=== PATIENT | female | born 1965 | race Two or more races ===

== ENCOUNTER 2025-06-02 12:48 | Emergency (ER) | payer BC, OTHER ==
[~2025-06-02] VITALS: Ht 162.6 cm; Wt 91.0 kg
--- NOTE | 2025-06-02 13:05 | ED.PDOC ---
Musculoskeletal HPI Comments REBECCA: R knee pain 59y F who presents to the ED via EMS for chief complaint of R knee pain - Pt was at home and had mechanical slip and fall on R knee onto thin carpet and fell to the floor - pt states she was unable to get up but denies any associated head injury or loss of consciousness and called EMS - EMS arrived on scene and noted pt was helped and escorted to chair and then EMS gurney with noted pain when being moved - EMS noted pt was brought to the ED and was given 50 mcg of fentanyl prior to ED arrival with noted minimal change in pain - pt in the ED, noted R knee pain with any movement - pt otherwise states she ambulates at home with walker - pt in the ED, denies use of blood thinner at this time Past Medical history: HTN, Hyperlipidemia, COPD, neuropathy Past Surgical history: Medications: Social history: denies EOTH, denies tobacco use, denies drug use Allergies: nkda HPI: Poor Historian. Patient is not on blood thinners. REVIEW OF SYSTEMS: CONSTITUTIONAL: Denies acute: fever, diaphoresis, chills, generalized weakness. HEAD: Denies acute: headache, photophobia Eyes: Denies acute: Double vision, vision loss, eye pain, eye discharge. EARS: Denies acute: tinnitus, hearing loss, ear discharge, ear pain, THROAT: Denies acute: sore throat, swelling, difficulty swallowing , pain with swallowing, change in voice. NECK: Denies acute: neck pain, neck swelling, stiff neck. HEART: Denies acute : chest pain, palpitations, LUNGS: Denies acute: SOB, wheezing, cough, hemoptysis ABDOMEN: Denies acute: abdominal pain, Nausea, Vomiting, diarrhea, melena , hematemesis, hematochezia SKIN: Denies acute: rash, redness, lesions, itchiness. EXTREMITIES: Denies acute: calf pain, numbness, tingling, weakness, Denies acute: Low back pain. Neuro: Denies acute: focal neurological deficit, motor or sensory focal neurological deficit, tremors, seizure like activity, confusion, dizziness, change in mental status, loss of bowel or bladder function, cauda equina like symptoms. : Denies acute: dysuria, hematuria, flank pain, increase in urinary frequency. PSYCH: Denies acute: hallucination, suicidal ideation, homicidal ideation. FEMALE: Denies acute: abnormal vaginal bleeding, foul odor, unusual discharge. PHYSICAL EXAM: General: ------moderate--acute distress, awake and alert. Head: normocephalic, atraumatic. Neck: supple, trachea is midline, no swelling. Throat: Normal phonation. Eyes:, no erythema, no purulent discharge, no proptosis, no icterus. Heart: regular rate, regular rhythm, no significant murmur appreciated. Lungs: no apparent respiratory distress, Able to speak in full sentences. No wheezing, no rhonchi, no crackles. No stridors Clear to auscultation bilaterally. Abdomen: non tender to palpation, non distended, soft, no guarding, no rebound, + bowel sounds. Please Neuro: Awake, Alert, oriented to name, self, situation, follows commands GCS=15. Speech is normal. Skin: no petechia, no purpura, no cyanosis, non-pale, not jaundice. Lower extremities: --no - Pitting edema no deformity, , no calf TTP. Makes eye contact. moves all four extremities. Face: no apparent facial droop. Evaluation of the area of complaint: [id number] right knee noted bruising and tenderness to palpation. Patient is neurovascularly intact in the affected extremity. Pedal pulses palpable. Sensory and motor are present. Decreased range of motion of right knee secondary to pain. Pedal pulses are palpable. ED COURSE: DISCLAIMER: This medical document was created using an electronic medical record system with voice recognition software and computerized dictation system. Although this document has been carefully reviewed, there might still be some phonetic and typographical errors. Occasional wrong-word or "sound-alike" substitutions may have occurred due to the inherent limitations of voice recognition software. These areas are purely typographical due to imperfections of the software programs and do not reflect any compromise in the patient's medical care. Please read the chart carefully and recognize, using context, where these substitutions have occurred. Time Seen by MD: 12:56 Reviewed Notes: Laborer Hoisting Notes, Medications, Allergies Allergies: Coded Allergies: Sulfa Antibiotics (Verified Allergy, Unknown, 06/02/25) Home Meds Reported Medications Gabapentin (Neurontin) 400 Mg Cap, 2 CAP PO TID, #90 CAP 1 Refill 06/03/25 Information Source: Patient Mode of Arrival: EMS Brought in by: EMS Location: Right Extremity Location: Knee Was a procedure done? Was a procedure done?: No Differential Diagnosis EXT Differential Diagnosis: Cellulitis, CHF, Deep Vein Thrombosis, Compartment Syndrome, Fracture, Sprain, Dislocation, Laceration, Gout, DJD, Contusion, Strain, Septic, Neurovascular injury, Arthritis, Bursitis X-Ray, Labs, Meds, VS Vital Signs Date Time Temp Pulse Resp B/P (MAP) Pulse Ox O2 Delivery O2 Flow Rate FiO2 06/02/25 16:15 67 16 129/86 (100) 92 06/02/25 14:00 55 16 129/69 (89) 96 06/02/25 14:00 55 16 96 Room Air* 0 21 06/02/25 13:28 98.2 68 18 140/79 96 98.2 [place] [address] Ph: [phone] DIAGNOSTIC IMAGING Diagnostic Imaging Report : [id number] Signed PATIENT: NATALIE FERNANDEZ ACCT: [id number] UNIT: [id number] : 1965 LOC: ER ROOM / BED: / AGE / SEX: 59 / F ADM STATUS: REG ER SERVICE 1400 ORDERING PHYSICIAN: MARTA PRATER DO PROCEDURE(s): RTBFB - R TIB FIB XRAY REASON: fall pain ORDER NUMBER(s): [id number], ACCESSION NUMBER(s): [id number] CLINICAL INDICATION: fall pain TECHNIQUE: 3 radiographic views of the right tibia/fibula were obtained. Comparison: XY R KNEE 3V XRAY on DOS: 06/02/25 FINDINGS/IMPRESSION: There is no evidence of acute fracture or dislocation. The visualized joint space is well maintained. The alignment is anatomical. There is no radiopaque foreign body. ATED BY: TEJAS MILLARD MD DICTATED DATE/TIME: 06/02/25 145 SIGNED BY: TEJAS MILLARD MD SIGNED DATE/TIME: 06/02/25 145 CC: [address], [place] - [address] Ph: [phone] DIAGNOSTIC IMAGING Diagnostic Imaging Report : [id number] Signed PATIENT: NATALIE FERNANDEZ ACCT: [id number] UNIT: [id number] : 1965 LOC: ER ROOM / BED: / AGE / SEX: 59 / F ADM STATUS: REG ER SERVICE 1302 ORDERING PHYSICIAN: MARTA PRATER DO PROCEDURE(s): RKN3 - R KNEE 3V XRAY REASON: injury, fall pain ORDER NUMBER(s): [id number], ACCESSION NUMBER(s): [id number] Indication: injury, fall pain Technique: XY R KNEE 3V XRAYXY Comparison: None FINDINGS/IMPRESSION: No radiographic evidence for acute fracture or dislocation. Moderate to advanced tricompartmental degenerative joint disease of the right knee. Small suprapatellar effusion. Prepatellar edema. ATED BY: NOY CHANCE MD DICTATED DATE/TIME: 06/02/25 1354 SIGNED BY: NOY CHANCE MD SIGNED DATE/TIME: 06/02/25 1354 CC: Time of 1ST Reevaluation: 13:30 Reevaluation 1ST: Unchanged Time of 2ND Reevaluation: 16:07 (Patient is able to ambulate to the bathroom. Patient uses a walker and a cane at home as needed. I offered the patient to be admitted to the hospital for pain control and possible ortho evaluation. Patient requests to be discharged home and she will call the orthopedic doctor herself for outpatient follow up.) Reevaluation 2ND: Improved Patient Education/Counseling: Diagnosis, Treatment Family Education/Counseling: No Family Present Comments MDM: patient presented with the above HPI.--lower extremity pain----workup was initiated. patient was found with the above mentioned diagnosis. the following medications were ordered: please refer to order lists of meds and tests obtained by myself Dr. Prater. Patient ED course and VS have been stabilized. Patient has been reassessed in the ED and remained in a stable condition. Pertinent incidental findings were discussed with the patient and/or family. Patient/family voices understanding and is agreeable with plan. Patient has been observed in the ED adequate length of time to insure improvement/stability. Escalation of care considered: Consideration of escalation to observation or admission Patient was offered admission to the hospital but she wants to go home. Patient was ambulating in the ED. Patient will follow up closely with the orthopedic doctor. Patient was DISCHARGED home in a stable condition. All the reports of any imaging studies that were ordered by myself were reviewed by myself. Departure 1 Departure Time of Disposition: 16:07 Impression: Primary Impression: Contusion of right lower extremity Additional Impression: Contusion of right knee Disposition: HOME / SELF CARE / HOMELESS Condition: Stable Additional Instructions: Additional instructions: Please read all instructions provided in this packet carefully. You MUST follow-up with your primary care/family doctor in 1 to 2 days. If you are unable to see your primary care/family doctor, please return to our emergency room for re-assessment and re-evaluation in 1 to 2 days. Return to the emergency room here in our facility or to the nearest ER [facility] if your symptoms change or worsen. CONSULTATIONS: you MUST Follow-up for consultation as soon as possible with: -orthopedic doctor in 1-2 days. Please call for appointment You MUST call the consultants office yourself to make an appointment. You may need to arrange that through your insurance and/or your primary/family doctor. If you are unable to see the individual pension consultant in 1 to 2 days, you must return to our emergency room (or any other ER of your choice) for re-assessment and re- evaluation. Adequate fluid hydration. Although you have been discharged from the Emergency Department, this does not mean that you have a "clean bill of health". No definitive diagnosis for your symptoms has been made today. It is possible that you are in the process of developing a serious illness. This is why you must return to the ED without fail if any new or worsening symptoms develop. Fall precautions. Ambulates with the assistance at all times. Leg elevation and apply ice to the affected area with the pain is. Below is a copy of your radiological report for follow up: [address] [address] Ph: [phone] DIAGNOSTIC IMAGING Diagnostic Imaging Report : [id number] Signed PATIENT: NATALIE FERNANDEZ ACCT: [id number] UNIT: [id number] : 1965 LOC: ER ROOM / BED: / AGE / SEX: 59 / F ADM STATUS: REG ER SERVICE 1400 ORDERING PHYSICIAN: MARTA PRATER DO PROCEDURE(s): RTBFB - R TIB FIB XRAY REASON: fall pain ORDER NUMBER(s): [id number], ACCESSION NUMBER(s): [id number] CLINICAL INDICATION: fall pain TECHNIQUE: 3 radiographic views of the right tibia/fibula were obtained. Comparison: XY R KNEE 3V XRAY on DOS: 06/02/25 FINDINGS/IMPRESSION: There is no evidence of acute fracture or dislocation. The visualized joint space is well maintained. The alignment is anatomical. There is no radiopaque foreign body. ATED BY: TEJAS MILLARD MD DICTATED DATE/TIME: 06/02/25 1456 SIGNED BY: TEJAS MILLARD MD SIGNED DATE/TIME: 06/02/251455 CC: [place] [address] Ph: [phone] DIAGNOSTIC IMAGING Diagnostic Imaging Report : [id number] Signed PATIENT: NATALIE FERNANDEZ ACCT: [id number] UNIT: [id number] : 1965 LOC: ER ROOM / BED: / AGE / SEX: 59 / F ADM STATUS: REG ER SERVICE 1302 ORDERING PHYSICIAN: MARTA PRATER DO PROCEDURE(s): RKN3 - R KNEE 3V XRAY REASON: injury, fall pain ORDER NUMBER(s): [id number], ACCESSION NUMBER(s): [id number] Indication: injury, fall pain Technique: XY R KNEE 3V XRAYXY Comparison: None FINDINGS/IMPRESSION: No radiographic evidence for acute fracture or dislocation. Moderate to advanced tricompartmental degenerative joint disease of the right knee. Small suprapatellar effusion. Prepatellar edema. ATED BY: NOY CHANCE MD DICTATED DATE/TIME: 06/02/25 1354 SIGNED BY: NOY CHANCE MD SIGNED DATE/TIME: 06/02/25 6826 CC: Discharged With: Self, Spouse Critical Care Note Critical Care Time?: No Stability Stability form required: No I personally scribed for MARTA PRATER DO ([facility]) on 06/02/25 at 13:05. Elec tronically submitted by Noel Nolasco ([facility]). I personally scribed for MARTA PRATER DO ([facility]) on 06/02/25 at 13:52. Electronically submitted by Noel Nolasco ([email or web address]). I personally scribed for MARTA PRATER DO ([email or web address]) on 06/02/25 at 15:06. Electronically submitted by Noel Nolasco (DANIEL). I personally scribed for MARTA PRATER DO ([email or web address]) on 06/02/25 at 16:09. Electronically submitted by Noel Nolasco ([email or web address]). MARTA PRATER DO Jun 02, 2025 13:05
[2025-06-02 13:28] VITALS: TEMP 98.2
--- NOTE | 2025-06-02 13:52 | DVH ---
Indication: injury, fall pain Technique: XY R KNEE 3V XRAYXY Comparison: None FINDINGS/IMPRESSION: No radiographic evidence for acute fracture or dislocation. Moderate to advanced tricompartmental de generative joint disease of the right knee. Small suprapatellar effusion. Prepatellar edema.
[2025-06-02 14:00] VITALS: PULSE 55; RESP 16; O2SAT 96
[2025-06-02] MEDS: HYDROcodone-ACET 5/325MG TAB PO ONE (14:36)
--- NOTE | 2025-06-02 14:59 | DVH ---
CLINICAL INDICATION: fall pain TECHNIQUE: 3 radiographic views of the right tibia/fibula were obtained. Comparison: XY R KNEE 3V XRAY on DOS: 06/02/25 FINDINGS/IMPRESSION: There is no evidence of acute fracture or dislocation. The visualized joint space is well maintained. The alignment is anatomical. There is no radiopaque foreign body.
[2025-06-02 16:15] VITALS: BP 129/86; PULSE 67; RESP 16; O2SAT 92
[2025-06-03] MEDS ORDERED: GABA400C PO (17:16)
== END 2025-06-02 16:43 | disposition home or self-care (01) ==
LOC: EDBD 12:48 → ER 12:48
DX: S80.11XA Contusion of right lower leg, initial encounter (principal); S80.01XA Contusion of right knee, initial encounter; I10 Essential (primary) hypertension; E78.5 Hyperlipidemia, unspecified; J44.9 Chronic obstructive pulmonary disease, unspecified; M17.11 Unilateral primary osteoarthritis, right knee; Z79.899 Other long term (current) drug therapy; Z88.2 Allergy status to sulfonamides; W01.0XXA Fall on same level from slipping, tripping and stumbling without subsequent striking against object, initial encounter; Y93.89 Activity, other specified; Y92.098 Other place in other non-institutional residence as the place of occurrence of the external cause; Y99.8 Other external cause status
CPT/HCPCS: 73562; 73590

== ENCOUNTER 2025-06-03 05:12 | Inpatient (IN) | payer BC ==
[~2025-06-03] VITALS: Ht 152.4 cm; Wt 116.8 kg
[2025-06-03] MEDS: ACETAMINOPHEN 325 MG TAB PO ONE (06:20)
--- NOTE | 2025-06-03 07:27 | ED.PDOC ---
Musculoskeletal HPI Comments A 59 YEAR OLD FEMALE PRESENTS TO THE ED WITH COMPLAINT OF RIGHT KNEE PAIN STATUS POST FALL. PATIENT STATES THAT SHE ACCIDENTALLY SLIPPED AND FELL YESTERDAY AND INJURED HER RIGHT KNEE. PATIENT REPORTS SHE CAME TO THIS ED AFTER THIS INJURY WHERE AN X-RAY OF HER RIGHT KNEE AND RIGHT TIB-FIB WAS DONE ALL OF WHICH WAS NORMAL, BUT REVEALED DEGENERATIVE JOINT DISEASE OF HER RIGHT KNEE. PATIENT REPORTS SHE CONTINUES TO HAVE SEVERE RIGHT KNEE PAIN DESPITE TAKING PAIN MEDICATIONS. PATIENT NOTES HER PAIN IS WORSE AT NIGHT AND WOKE HER UP. PATIENT IS UNABLE TO BEAR WEIGHT DUE TO HER PAIN. THE PAIN LEVEL IS 10/10 AT THIS TIME. PATIENT DENIES FEVER, CHILLS, SHORTNESS OF BREATH, CHEST PAIN, ABDOMINAL PAIN, NAUSEA, VOMITING, HEADACHE, OR OTHER COMPLAINTS. NO OTHER SYMPTOMS OR MODIFYING FACTORS AT THIS TIME. PATIENT IS ALERT, ORIENTED X 4 AND SITTING ON THE WHEEL CHAIR. Chief Complaint: Fall Injury Time Seen by MD: 06:26 Reviewed Notes: Nurses Notes, Medications, Allergies Allergies: Coded Allergies: Sulfa Antibiotics (Verified Allergy, Unknown, 06/02/25) Information Source: Patient Mode of Arrival: Ambulatory Location: Right Extremity Location: Knee Timing: Days Prehospital treatment: None Severity: Moderate Able to Move Extremity: Yes Bear Weight: Limited Pain: Moderate Mechanism: Blunt Trauma Circumstances: Fall Onset of Symptoms: After Trauma Symptoms: Swelling, Pain DVT Risk Factors: NONE Last Tetanus: UTD, Unknown Associated signs and symptoms: Knee pain Past Medical History PAST MEDICAL HISTORY: COPD, HTN Past Medical History (Other): CHRONIC LOW BACK PAIN Surgical History: Denies all surgeries BOOK AUTHOR History: No Pertinent BOOK AUTHOR History Family History Family History: Reviewed,noncontributory to illness Social History Smoker: Non-Smoker Alcohol: Denies ETOH Use Drugs: Denies Drug Use Lives In: Home Constitutional: reports: others (ANXIOUS ); denies: chills, diaphoresis, fatigue, fever, malaise, sweats, weakness EENTM: denies: blurred vision, double vision, ear bleeding, ear discharge, ear drainage, ear pain, ear ringing, eye pain, eye redness, hearing loss, mouth pain, mouth swelling, nasal discharge, nose bleeding, nose congestion, nose pain, photophobia, tearing, throat pain, throat swelling, voice changes, others Respiratory: denies: cough, hemoptysis, orthopnea, SOB at rest, shortness of breath, SOB with excertion, stridor, wheezing, others Cardiovascular: denies: chest pain, dizzy spells, diaphoresis, Dyspnea on exertion, edema, irregular heart beat, left arm pain, lightheadedness, palpitations, PND, syncope, others Gastrointestinal: denies: abdomen distended, abdominal pain, blood streaked bowels, constipated, diarrhea, dysphagia, difficulty swallowing, hematemesis, melena, nausea, poor appetite, poor fluid intake, rectal bleeding, rectal pain, vomiting, others Genitourinary: denies: abnormal vagina bleeding, burning, dyspareunia, dysuria, flank pain, frequency, hematuria, incontinence, pain, , vagina discharge, urgency, others Neurological: denies: dizziness, fainting, headache, left sided numbness, left sided weakness, numbness, paresthesia, pre-existing deficit, right sided numbness, right sided weakness, seizure, speech problems, tingling, tremors, weakness, others Musculoskeletal: reports: joint pain, joint swelling, others (RIGHT KNEE PAIN); denies: back pain, gout, muscle pain, muscle stiffness, neck pain Integumetry: denies: bruises, change in color, change in hair/nails, dryness, laceration, lesions, lumps, rash, wounds, others Allergic/Immunocompromised: denies: Difficulty Healing, Frequent Infections, Hives, Itching, others Hematologic/Lymphatic: denies: anemia, blood clots, easy bleeding, easy bruising, swollen glands, others Endocrine: denies: excessive hunger, excessive sweating, excessive thirst, excessive urination, flushing, intolerance to cold, intolerance to heat, unexplained weight gain, unexplained weight loss, others Psychiatric: denies: anxiety, bipolar disorder, depression, hopeless, panic disorder, schizophrenia, sleepless, suicidal, others All Other Systems: Reviewed and Negative Physical Exam General Appearance: Mild Distress, Obese HEENT: Normal ENT Inspection, PERRL/EOMI, Pharynx Normal, TMs Normal Neck: Full Range of Motion, Non-Tender, Normal, Normal Inspection Respiratory: Chest Non-Tender, Lungs Clear, No Accessory Muscle Use, No Respiratory Distress, Normal Breath Sounds Cardiovascular: No Edema, No JVD, No Murmur, No Gallop, Normal Peripheral Pulses, Regular Rate/Rhythm Breast Exam: Deferred Gastrointestinal: No Organomegaly, Non Tender, No Pulsatile Mass, Normal Bowel Sounds, Soft Genitalia: Deferred Pelvic: Deferred Rectal: Deferred Extremities: Decreased range of motion, No calf tenderness, Normal capillary refill, No pedal edema, Swelling (TENDERNESS AND SWELLING WITH CONTUSION ON RIGHT KNEE, NO BONY TENDERNESS AND DEFORMITY. ), Tender (AND SWELLING ON RIGHT KNEE WITH MILD JOINT EFFUSION. ) Musculoskeletal : Apperance: Normal Neurologic: Alert, human resources support specialist II-XII nml as Tested, No Motor Deficits, Normal Affect, Normal Mood, No Sensory Deficits Cerebellar Function: Normal Reflexes: Normal Skin: Dry, Normal Color, Warm Peripheral Pulses: 2+ carotid (R), 2+ carotid (L), 2+ dorsalis pedis (R), 2+ dorsalis pedis (L) Lymphatic: No Adenopathy Was a procedure done? Was a procedure done?: No Differential Diagnosis EXT Differential Diagnosis: Fracture, Sprain, Dislocation, DJD, Contusion, Strain, Arthritis, Bursitis X-Ray, Labs, Meds, VS Vital Signs Date Time Temp Pulse Resp B/P (MAP) Pulse Ox O2 Delivery O2 Flow Rate FiO2 06/03/25 12:00 63 15 96 Room Air* 0 21 06/03/25 11:30 97.7 73 16 115/60 (78) 97 97.7 06/03/25 10:27 69 16 98/51 06/03/25 09:51 98.4 74 16 98/51 (67) 90 98.4 06/03/25 09:51 74 16 90 Room Air* 0 21 06/03/25 09:23 62 18 131/56 06/03/25 08:50 62 18 100 Room Air 06/03/25 08:50 62 18 131/56 (81) 100 06/03/25 05:13 98.3 66 18 148/63 98 98.3 Lab Test 06/03/25 09:22 06/03/25 07:51 06/03/25 07:15 Range/Units White Blood Count 7.2 4.4-10.8 10^3/uL Red Blood Count 4.19 4.0-5.20 10^6/uL Hemoglobin 12.4 12.2-16.2 g/dL Hematocrit 37.3 36.0-46.0 % Mean Corpuscular Volume 89.1 80.0-100.0 fL Mean Corpuscular Hemoglobin 29.7 28.0-32.0 pg Mean Corpuscular Hemoglobin Concent 33.3 32.0-36.0 g/dL Red Cell Distribution Width 13.9 11.8-14.3 % Platelet Count 242 140-450 10^3/uL Mean Platelet Volume 9.1 6.9-10.8 fL Neutrophils (%) (Auto) 68.3 37.0-80.0 % Lymphocytes (%) (Auto) 22.5 10.0-50.0 % Monocytes (%) (Auto) 6.5 0.0-12.0 % Eosinophils (%) (Auto) 2.2 0.0-7.0 % Basophils (%) (Auto) 0.5 0.0-2.0 % Neutrophils # (Auto) 4.9 1.6-8.6 10 ^3/uL Lymphocytes # (Auto) 1.6 0.4-5.4 10 ^3/uL Monocytes # (Auto) 0.5 0-1.3 10 ^3/uL Eosinophils # (Auto) 0.2 0-0.8 10 ^3/uL Basophils # (Auto) 0 0-0.2 10 ^3/uL Nucleated Red Blood Cells 0.1 % Lactate Dehydrogenase 298 H 120-246 U/L C-Reactive Protein High Sensitivity 0.93 <1.0 mg/dL Sodium Level 143 136-145 mmol/L Potassium Level 4.1 3.5-5.1 mmol/L Chloride Level 107 98-107 mmol/L Carbon Dioxide Level 25 20-31 mmol/L Anion Gap 11 5-15 Blood Urea Nitrogen 9 9-23 mg/dL Creatinine 0.66 0.550-1.02 mg/dL Glomerular Filtration Rate Calc 100 >90 mL/min BUN/Creatinine Ratio 13.6 10.0-20.0 Serum Glucose 131 H 74-106 mg/dL Calcium Level 9.4 8.7-10.4 mg/dL Urine Color Light-yellow Yellow Urine Clarity Clear Clear Urine pH 6.5 5.0-9.0 Urine Specific Reeder 1.008 1.001-1.035 Urine Protein Negative Negative Urine Ketones Negative Negative Urine Blood Negative Negative /uL Urine Nitrite Negative Negative Urine Bilirubin Negative Negative Urine Urobilinogen Normal Negative mg/dL Urine Leukocyte Esterase Negative Negative /uL Urine RBC None seen 0 - 4 /hpf Urine Microscopic WBC 0-5 /HPF Urine Squamous Epithelial Cells Few <5 /hpf Urine Bacteria Few H None Seen /hpf Urine Glucose Normal Normal mg/dL Current Medications Medications (Trade) Dose Ordered Sig/Gt Route Start Time Stop Time Status Last Admin Acetaminophen (Tylenol Tablet) 650 mg ONCE ONCE PO 06/03/25 06:15 06/03/25 06:16 DC 06/03/25 06:20 Acetaminophen/ Hydrocodone Bitart ([place] 10/325MG Tab) 1 tab ONCE ONCE PO 06/03/25 07:15 06/03/25 07:16 DC 06/03/25 07:38 Hydromorphone HCl (Dilaudid Injection) 1 mg ONCE ONCE IV 06/03/25 08:45 06/03/25 08:46 DC 06/03/25 09:23 Ondansetron HCl (Zofran) 4 mg ONCE ONCE IV 06/03/25 08:45 06/03/25 08:46 DC 06/03/25 09:23 Sodium Chloride 1,000 ml @ 150 mls/hr Q6H40M ONCE IV 06/03/25 08:45 06/03/25 15:24 DC 06/03/25 10:21 CLINICAL INDICATION: FALL TECHNIQUE: Noncontrast CT of the right knee was performed. Sagittal and coronal reformatted images are provided. COMPARISON: XY R KNEE 3V XRAY on DOS: 06/02/25 CT Dose: CTDI volume is 13.96 mGy. Dose-length product is 486.19 mGy*cm FINDINGS: No fracture or dislocation. There is a 1.9 cm sclerotic lesion in the central proximal tibia. This could represent either chondroid lesion or an intramedullary infarct. There is sclerotic foci along the posterior aspect of the lateral distal femoral condyle suggesting avascular necrosis. No articular collapse. No acute fracture or dislocation. Tricompartment osteophytes are present and there is moderate medial compartment joint space narrowing. There is high density fluid in the prepatellar soft tissues measuring 9.2 cm consistent with hematoma. Mild fatty infiltration of the muscles in the knee. IMPRESSION: 1. No acute fracture or dislocation. 2. Osteoarthritis. 3. Hematoma in the anterior prepatellar soft tissues. 4. Avascular necrosis in the posterolateral femoral condyle. 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. All CT scans at this medical facility are performed using dose modulation techniques as appropriate to a performed exam including the following: Automated exposure control was utilized; adjustment of the MA and/or KV according to patient size; and use of iterative reconstruction technique. ATED BY: DOUGLAS AGUAYO MD DICTATED DATE/TIME: 06/03/25802 SIGNED BY: DOUGLAS AGUAYO MD SIGNED DATE/TIME: 06/03/25802 CC: X-Ray, Labs, Meds, VS Comment EXTERNAL MEDICAL RECORDS REVIEWED: [NONE] INDEPENDENT HISTORIANS: [NONE] SOCIAL DETERMINANTS OF HEALTH: [NONE] LABS ORDERED: CBC, BMP, UA REVIEWED AND INTERPRETED RESULTS: IMAGING ORDERED: CT RIGHT KNEE TREATMENTS ORDERED: NORCO 10/325 MG P.O. DILAUDID 1 MG IV, ZOFRAN 4 MG IV, 0.9 NORMAL SALINE 150ML/HOUR PROCEDURES PERFORMED: NONE CRITICAL CARE TIME: NONE I HAVE DISCUSSED THE PATIENT WITH THE ATTENDING PHYSICIAN DR. ARMSTRONG AND HE AGREES WITH THE PATIENT'S PLAN OF CARE. 0835: CONSULTED THE ON-CALL BOTTLE LABELER, DR. LOPEZ REGARDING THIS PATIENT'S CASE AND HE HAS A AGREED TO CONSULT ON THE PATIENT'S CASE. UPON MY PHYSICAL EXAMINATION, THE PATIENT HAD TENDERNESS UPON PALPATION, BRUISING, AND SWELLING NOTED TO HER RIGHT KNEE, AND THE PATIENT WAS UNABLE TO BEAR WEIGHT DUE TO HER PAIN. A CT SCAN OF THE PATIENT'S RIGHT KNEE WAS DONE WHICH REVEALED OSTEOARTHRITIS AND AVASCULAR NECROSIS OF THE POSTEROLATERAL FEMORAL CONDYLE. DUE TO THE PATIENT'S INTRACTABLE RIGHT KNEE PAIN AND INABILITY TO BEAR WEIGHT DUE TO HER PAIN DESPITE TREATMENT, I HAVE DETERMINED THE PATIENT NEEDS TO BE ADMITTED FOR FURTHER TREATMENT AND EVALUATION. THE ON-CALL HOSPITALIST WILL BE CONTACTED FOR ADMISSION OF THIS PATIENT. Images Reviewed?: Images reviewed and evaluated by me Time of 1ST Reevaluation: 10:00 Reevaluation 1ST: Improved Consultation: Other (0835: CONSULTED THE ON-CALL BOTTLE LABELER, DR. LOPEZ REGARDING THIS PATIENT'S CASE AND HE HAS A AGREED TO CONSULT ON THE PATIENT'S CASE.) Patient Education/Counseling: Diagnosis, Treatment Family Education/Counseling: Diagnosis, Treatment Departure 1 Departure Time of Disposition: 10:00 Impression: Primary Impression: Intractable pain Additional Impressions: Avascular necrosis of femoral condyle Osteoarthritis Qualified Codes: M17.11 - Unilateral primary osteoarthritis, right knee Disposition: ADMITTED INPATIENT Condition: Serious Critical Care Note Critical Care Time?: No Stability Stability form required: Yes Unstable for transfer: Requires medication, ED Physician Assesment, Possible rapid decline I personally scribed for JIA ASENCIO ([email or web address]) on 06/03/25 at 07:27. Electronically submitted by All Patrick ([employer]). I personally scribed for JIA ASENCIO ([email or web address]) on 06/03/25 at 08:29. Electronically submitted by All [employer] ([employer]). I personally scribed for JIA ASENCIO ([email or web address]) on 06/03/25 at 08:42. Electronically submitted by All [employer] ([employer]). JIA ASENCIO Jun 03, 2025 07:27
[2025-06-03] MEDS: HYDROcodone-ACET 10/325MG TAB PO ONE ×2 (07:38→13:25)
--- NOTE | 2025-06-03 08:05 | DVH ---
CLINICAL INDICATION: FALL TECHNIQUE: Noncontrast CT of the right knee was performed. Sagittal and coronal reformatted images ar e provided. COMPARISON: XY R KNEE 3V XRAY on DOS: 06/02/25 CT Dose: CTDI volume is 13.96 mGy. Dose-length product is 486.19 mGy*cm FINDINGS: No fracture or dislocation. There is a 1.9 cm sclerotic lesion in the central proximal tibi a. This could represent either chondroid lesion or an intramedullary infarct. There is sclerotic foc i along the posterior aspect of the lateral distal femoral condyle suggesting avascular necrosis. No articular collapse. No acute fracture or dislocation. Tricompartment osteophytes are present and th ere is moderate medial compartment joint space narrowing. There is high density fluid in the prepate llar soft tissues measuring 9.2 cm consistent with hematoma. Mild fatty infiltration of the muscles i n the knee. IMPRESSION: 1. No acute fracture or dislocation. 2. Osteoarthritis. 3. Hematoma in the anterior prepatellar soft tissues. 4. Avascular necrosis in the posterolateral femoral condyle. Chondroid lesion versus intramedullary b one infarcts in the proximal tibia. All CT scans at this medical facility are performed using dose modulation techniques as appropriate t o a performed exam including the following: Automated exposure control was utilized; adjustment of th e MA and/or KV according to patient size; and use of iterative reconstruction technique.
[2025-06-03 08:16] LABS: Chloride 107 mmol/L (98-107); Potassium 4.1 mmol/L (3.5-5.1); Sodium 143 mmol/L (136-145)
[2025-06-03 08:17] LABS: Anion Gap 11 (5-15); Calcium 9.4 mg/dL (8.7-10.4); Carbon Dioxide 25 mmol/L (20-31)
[2025-06-03 08:22] LABS: BUN/Creatinine Ratio 13.6 (10.0-20.0); Blood Urea Nitrogen 9 mg/dL (9-23)
[2025-06-03 08:23] LABS: Glucose 131 mg/dL (74-106)
[2025-06-03] MEDS: ONDANSETRON HCL 4 MG/2 ML VIAL IV ONE (09:23)
[2025-06-03] MEDS: HYDROmorphone HCL 2 MG/ML VL/or syr IV ONE (09:23)
[2025-06-03 09:34] LABS: Urine Protein, UAD Negative (Negative)
[2025-06-03 09:51] VITALS: PULSE 74; RESP 16; O2SAT 90
[2025-06-03 10:18] LABS: Hematocrit 37.3 % (36.0-46.0); Hemoglobin 12.4 g/dL (12.2-16.2); Mean Corpuscular Hemoglobin 29.7 pg (28.0-32.0); Mean Corpuscular Volume 89.1 fL (80.0-100.0); Nucleated Red Blood Cells % 0.1 %
[2025-06-03] MEDS: SODIUM CHLORIDE 0.9% 1,000 ML IV ONE (10:21)
[2025-06-03 12:00] VITALS: PULSE 63; RESP 15; O2SAT 96
[2025-06-03] MEDS ORDERED: MORPHINE SULFATE INJ 2 MG/ml SYRG IV PRN (13:00)
[2025-06-03] MEDS ORDERED: ACETAMINOPHEN 325 MG TAB PO PRN (13:00)
[2025-06-03] MEDS ORDERED: LORazepam 0.5 MG TAB PO ONE (13:00)
--- NOTE | 2025-06-03 14:56 | DVH ---
EXAM: MRI RT KNEE WITH OUT CON HISTORY: Right knee swelling and limited ROM after fall. COMPARISON: CT scan of the right knee dated 06/03/2025. TECHNIQUE: Multiplanar multisequence noncontrast MR images of the right knee were performed. FINDINGS: No fractures are identified throughout the right knee. There is mild bone marrow edema of t he medial tibial plateau. There is irregular intramedullary lesion of the proximal tibial metaphysis measuring 2.2 cm longitudinal, with fluid intensity peripherally and fat intensity centrally. There i s hemorrhage within the distal aspect of the vastus lateralis muscle, not fully imaged here. The ACL, PCL, MCL, LCL, quadriceps tendon, patellar tendon, and popliteus tendon are intact. There is intrasu bstance signal abnormality of the lateral meniscus anterior horn without focal or communicating tear. There is an oblique tear of the posterior horn of the medial meniscus communicating with the superio r articular surface and periphery and extending adjacent to the posterior root. There is diffuse irre gularity of the body of the medial meniscus, which is extruded 5.5 mm medially from the weight-bearin g portion of the joint. Additionally, the anterior horn of the medial meniscus is extruded 6 mm ante riorly. No significant lateral patellar subluxation. There is thinning of the articular cartilage in the medial patellar facet. There is full-thickness loss of articular cartilage in the medial compartm ent. There are tricompartmental marginal osteophytes, largest in the medial compartment. There is fla me shaped signal abnormality in the lateral femoral condyle posteriorly. There is mild sclerosis of the medial femoral condyle posteriorly. There is a moderate to large joint effusion. There is a popli teal fossa cyst measuring 6 cm longitudinal. There is extensive subcutaneous edema, greater anteriorl y and medially. There is loculated subcutaneous hematoma anteriorly measuring 12 cm longitudinal. Th ere is marked prominence of the subcutaneous adipose tissue. IMPRESSION: 1. No acute fracture of the right knee. 2. The cruciate and collateral ligaments are intact. 3. Complex tears of the medial meniscus body and posterior horn, with associated extrusion of the bod y and anterior horn. 4. Intrasubstance signal abnormality of the anterior horn of the lateral meniscus, likely degenerativ e, without evidence of focal tear of the lateral meniscus. 5. Tricompartmental degenerative changes of the right knee, with tricompartmental marginal osteophyte s, full-thickness chondromalacia of the medial compartment, and mild chondromalacia of the lateral pa tellofemoral articulation. Mild bone marrow edema of the medial tibial plateau may be due to chondrom alacia or mild bone bruise. 6. Areas of avascular necrosis including proximal tibial metaphysis and posterior aspect of the later al femoral condyle. 7. Grade 1 tear of the distal aspect of the right vastus lateralis muscle. This muscle is not fully i davidson here, and the grade of tear may be greater more proximal to the scanned areas. 8. 6 cm popliteal fossa cyst. 9. Obesity. 10. Extensive subcutaneous edema and 12 cm anterior subcutaneous hematoma.
[2025-06-03] MEDS: ONDANSETRON HCL 4 MG/2 ML VIAL IV PRN (16:46)
[2025-06-03 17:13] VITALS: PULSE 51; RESP 18; O2SAT 94
[2025-06-03] MEDS ORDERED: GABA400C PO (17:16)
[2025-06-03 20:00] VITALS: PULSE 86; RESP 19; O2SAT 93
[2025-06-03 20:58] VITALS: BP 138/73; PULSE 86; RESP 19; TEMP 97.9; O2SAT 93
[2025-06-03] MEDS: SENNA 8.6 MG TAB PO SCH (23:31)
[2025-06-04] VITALS (7 sets, daily range): BP systolic 98–132; BP diastolic 53–80; PULSE 57–78; RESP 16–18; TEMP 97.5–98.2; O2SAT 93–98
[2025-06-04 06:00] LABS: Hematocrit 32.6 % (36.0-46.0); Hemoglobin 12.4 g/dL (12.2-16.2); Nucleated Red Blood Cells % 0.0 %
[2025-06-04 06:01] LABS: Mean Corpuscular Hemoglobin 35.9 pg (28.0-32.0); Mean Corpuscular Volume 94.7 fL (80.0-100.0)
[2025-06-04 06:19] LABS: Alanine Aminotransferase 30 U/L (7-40); Albumin 4.5 g/dL (3.2-4.8); Alkaline Phosphatase 102 U/L (46-116); Anion Gap 12 (5-15); BUN/Creatinine Ratio 17.7 (10.0-20.0); Blood Urea Nitrogen 11 mg/dL (9-23); Calcium 10.1 mg/dL (8.7-10.4); Carbon Dioxide 25 mmol/L (20-31); Chloride 103 mmol/L (98-107); Glucose 105 mg/dL (74-106); Potassium 4.1 mmol/L (3.5-5.1); Sodium 140 mmol/L (136-145); Total Protein 7.3 g/dL (5.7-8.2)
[2025-06-04 06:20] LABS: Bilirubin, Total 0.5 mg/dL (0.2-1.0)
[2025-06-04] MEDS: POLYETHYLENE GLYCOL 17 GM PWDR PO SCH (10:00)
--- NOTE | 2025-06-04 11:06 | DVHHP2 ---
History of Present Illness Reason for Visit: Right knee pain status post fall History of Present Illness Vaishnavi Meier is a 59-year-old female with past medical history of ganglion cyst removal, , cholecystectomy, back surgery, hernia, COPD, hypertension, and chronic low back pain who presents to the ED with right knee pain status post fall that occurred yesterday. Patient reports that she was at home in her living room she was standing up on her carpet and she stated that she turned too quickly to the right tripped and fell on the carpet landing on both knees. Patient reports that she could not get up but she was able to call EMS for help. Patient reports that the pain is currently 2/10 sharp and burning and intermittent. Patient was here in the ER with an x-ray done of the right knee and tib-fib which was negative for fracture but did show a small suprapatellar effusion. Patient reports that she is unable to bear weight due to her pain. Reports that the pain medications that she was taking has not been helping. Patient's daughter Valene at the bedside. Patient reports that she uses a cane and a front wheel walker to ambulate. Patient also reports that she is not on any home oxygen. Patient also reports that this is the 1st fall she has ever had. Patient denies any sick contacts, recent ingestion of spoiled food, recent travels, chest pain, shortness of breath, fever, chills, lightheadedness, weakness, dizziness, abdominal pain, nausea, vomiting, diarrhea, urinary symptoms. Cardiovascular: HTN Pulmonary: COPD Past Medical History Chronic low back pain Hernia Past Surgical History: Cholecystectomy, , Other (Ganglion cyst removal and back surgery) Smoke: Quit ALCOHOL: none Drugs: None Lives: with Family Domestic Violence: Neg Review of Systems Musculoskeletal: other (Right knee pain) Skin: Bruising Allergies: Coded Allergies: Sulfa Antibiotics (Verified Allergy, Unknown, 06/02/25) Exam Vital Signs Vital Signs Date Time Temp Pulse Resp B/P (MAP) Pulse Ox O2 Delivery O2 Flow Rate FiO2 06/03/25 09:23 62 18 131/56 06/03/25 08:50 100 Room Air 06/03/25 05:13 98.3 98.3 General Appearance: Alert, Oriented X3, Cooperative, No acute distress HEENT: Atraumatic, PERRLA, EOMI, Mucous membr. moist/pink Respiratory: Clear to auscultation, Normal air movement Cardiovascular: Regular rate, Normal S1, Normal S2, No murmurs Abdominal: Normal bowel sounds, Soft Extremities: Other (Right knee bruising noted) Neuro: Normal speech, Sensation intact Psych/Mental Status: Mental status NL, Mood NL Labs/Xrays Labs Test 06/03/25 09:22 06/03/25 07:51 06/03/25 07:15 Range/Units Sodium Level 143 136-145 mmol/L Potassium Level 4.1 3.5-5.1 mmol/L Chloride Level 107 98-107 mmol/L Carbon Dioxide Level 25 20-31 mmol/L Anion Gap 11 5-15 Blood Urea Nitrogen 9 9-23 mg/dL Creatinine 0.66 0.550-1.02 mg/dL Glomerular Filtration Rate Calc 100 >90 mL/min BUN/Creatinine Ratio 13.6 10.0-20.0 Serum Glucose 131 H 74-106 mg/dL Calcium Level 9.4 8.7-10.4 mg/dL Urine Color Light-yellow Yellow Urine Clarity Clear Clear Urine pH 6.5 5.0-9.0 Urine Specific [place] 1.008 1.001-1.035 Urine Protein Negative Negative Urine Ketones Negative Negative Urine Blood Negative Negative /uL Urine Nitrite Negative Negative Urine Bilirubin Negative Negative Urine Urobilinogen Normal Negative mg/dL Urine Leukocyte Esterase Negative Negative /uL Urine RBC None seen 0 - 4 /hpf Urine Microscopic WBC 0-5 /HPF Urine Squamous Epithelial Cells Few <5 /hpf Urine Bacteria Few H None Seen /hpf Urine Glucose Normal Normal mg/dL CLINICAL INDICATION: FALL TECHNIQUE: Noncontrast CT of the right knee was performed. Sagittal and coronal reformatted images are provided. COMPARISON: XY R KNEE 3V XRAY on DOS: 06/02/25 CT Dose: CTDI volume is 13.96 mGy. Dose-length product is 486.19 mGy*cm FINDINGS: No fracture or dislocation. There is a 1.9 cm sclerotic lesion in the central proximal tibia. This could represent either chondroid lesion or an intramedullary infarct. There is sclerotic foci along the posterior aspect of the lateral distal femoral condyle suggesting avascular necrosis. No articular collapse. No acute fracture or dislocation. Tricompartment osteophytes are present and there is moderate medial compartment joint space narrowing. There is high density fluid in the prepatellar soft tissues measuring 9.2 cm consistent with hematoma. Mild fatty infiltration of the muscles in the knee. IMPRESSION: 1. No acute fracture or dislocation. 2. Osteoarthritis. 3. Hematoma in the anterior prepatellar soft tissues. 4. Avascular necrosis in the posterolateral femoral condyle. 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. SEPSIS Sepsis Screen Date sepsis recognized/suspect: Jun 03, 2025 Time Sepsis recognized/suspect: 05 Recent Procedure: No On Antibiotic Therapy: No Respiratory Rate >20: No Heart Rate >90: No Temp<36 C (96.8 F) or >38.3 C: No SBP <90 or MAP <65 mmHG: No New Acute Mental Status Change: No Is the patient on CPAP, BIPAP,: No Physician Orders Complete Blood Count (06/03/25 07:13) Ct R Knee Wo Contrast (06/03/25 07:13) * Orthopedic Consult (06/03/25 08:26) Heplock Iv (06/03/25 ) Sodium Chloride 0.9% (06/03/25 08:45) Vital Signs Date Time Temp Pulse Resp B/P (MAP) Pulse Ox O2 Delivery O2 Flow Rate FiO2 06/03/25 09:23 62 18 131/56 06/03/25 08:50 62 18 100 Room Air 06/03/25 08:50 62 18 131/56 (81) 100 06/03/25 05:13 98.3 66 18 148/63 98 98.3 Laboratory Tests Test 06/03/25 09:22 White Blood Count Pending Medications Medications Dose Ordered Sig/Gt Route Start Time Stop Time Status Last Admin Dose Admin Acetaminophen 650 mg ONCE ONCE PO 06/03/25 06:15 06/03/25 06:16 DC 06/03/25 06:20 650 MG Acetaminophen/ Hydrocodone Bitart 1 tab ONCE ONCE PO 06/03/25 07:15 06/03/25 07:16 DC 06/03/25 07:38 1 TAB Hydromorphone HCl 1 mg ONCE ONCE IV 06/03/25 08:45 06/03/25 08:46 DC 06/03/25 09:23 1 MG Ondansetron HCl 4 mg ONCE ONCE IV 06/03/25 08:45 06/03/25 08:46 DC 10/30/25 09:23 4 MG Assessment/Plan Assessment/Plan Assessment Intractable right knee pain status post fall Osteoarthritis Hematoma in the anterior prepatellar soft tissues Avascular necrosis in the posterolateral femoral condyle 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 Morbid obesity Acute hypoxic respiratory failure on supplemental oxygen Ex tobacco use, 5 years ago and smoked half a pack of cigarettes since she was 12 years old History of COPD History of hypertension History of chronic low back pain History of ganglion cyst removal History of History of cholecystectomy History of back surgery History of hernia Plan Admit to med surge Supplemental [address] knee noted LDH CRP Diet Home medications reconciled DVT prophylaxis-SCDs PUD prophylaxis-not indicated no history of GERD or GI bleed Discussed plan of care with patient, patient's daughter, and nurse Ortho consulted by ED Counseled patient on continuance of cessation of tobacco use Counseled patient on lifestyle modifications, diet, and exercise 52809 Behavior change smoking greater than 10 minutes about use of other options also gave option of nicotine patch [id number] Preventive counseling healthy eating habits, physical activity, and regular checkups Plan discussed with: Patient, Daughter Date of Service: Jun 03, 2025 Billing Provider: JACK HICKS Common Visit Codes: [id number] INP/OBS CARE (HIGH) Secondary Visit Codes: [id number] COUNSELING IND, [id number] CHNG SMOKING >10MIN JACK HICKS Jun 03, 2025 10:07
--- NOTE | 2025-06-04 11:12 | DVHINCON2 ---
Date of service: Jun 03, 2025 Reason for Consultation right knee pain, swelling, and limited ROM. History of Present Illness Mrs. Meier is a 59 year-old female who was brought to the hospital after experiencing a mechanical fall yesterday landing on her right knee. Patient notes that she was walking when she tripped on her rug landing on to her right knee and has been having severe pain and swelling to her knee with limited range of motion since. Patient notes that she has had chronic knee pain due to arthritis that she has been dealing with conservatively but notes that this pain has been significantly worse than her previous pain. Patient reports being brought to the hospital right after her fall yesterday and had an x-ray done and was told that there was no acute fractures and was discharged home but came back to two continuing progressively worsening pain. Patient reports she continues to be unable to bear weight on that side but denied any chest pain, shortness of breath, nausea, vomiting, fever, or chills. Patient was otherwise feeling well denying any other complaints or concerns during my evaluation. Past Medical History Hypertension, COPD, arthritis Past Surgical History Denies Family History Noncontributory Allergies: Coded Allergies: Sulfa Antibiotics (Verified Allergy, Unknown, 06/02/25) Current Medications Current Medications Medications (Trade) Dose Ordered Sig/Tg Route PRN Reason Start Time Stop Time Status Last Admin Polyethylene Glycol (Miralax 17GM Powder) 17 gm DAILY PO 06/04/25 10:00 Sennosides (Senokot Tablet) 8.6 mg HS PO 06/03/25 22:00 Acetaminophen/ Hydrocodone Bitart ([place] 5/325MG Tab) 1 tab Q4HP PRN PO MODERATE PAIN (4-6 PAIN SCALE) 06/03/25 13:00 Ondansetron HCl (Zofran) 4 mg Q4HP PRN IV NAUSEA / VOMITING 06/03/25 13:00 Acetaminophen (Tylenol Tablet) 650 mg Q6HP PRN PO PAIN SCALE 1-3 OR TEMP>100.4 06/03/25 13:00 Morphine Sulfate 2 mg Q4HPRN PRN IV SEVERE PAIN (7-10 PAIN SCALE) 06/03/25 13:00 Review of Systems 10 point review of systems negative except as per HPI Vital Signs Vital Signs Date Time Temp Pulse Resp B/P (MAP) Pulse Ox O2 Delivery O2 Flow Rate FiO2 06/03/25 11:30 97.7 73 16 115/60 (78) 97 97.7 06/03/25 09:51 Room Air* 0 21 Physical Exam General appearance: A&O x4 in no acute distress HEENT: Normal ENT inspection, pharynx normal, TMs normal Neck: Full range of motion, nontender, normal inspection Respiratory: Chest nontender, without accessory muscle use, no respiratory distress Cardiovascular: No edema, no JVD, normal peripheral pulses Gastrointestinal: Soft, nontender, no organomegaly. Musculoskeletal: Right knee range of motion grossly limited with pain on slight movement, tenderness to palpation along the proximal tibia, no calf tenderness, normal capillary refill, mild pedal edema, neurovascularly intact. Skin: Dry, normal color, warm Lymphatic: No adenopathy Labs/Diagnostic Data Labs Test 06/03/25 09:22 06/03/25 07:51 06/03/25 07:15 Range/Units White Blood Count 7.2 4.4-10.8 10^3/uL Red Blood Count 4.19 4.0-5.20 10^6/uL Hemoglobin 12.4 12.2-16.2 g/dL Hematocrit 37.3 36.0-46.0 % Mean Corpuscular Volume 89.1 80.0-100.0 fL Mean Corpuscular Hemoglobin 29.7 28.0-32.0 pg Mean Corpuscular Hemoglobin Concent 33.3 32.0-36.0 g/dL Red Cell Distribution Width 13.9 11.8-14.3 % Platelet Count 242 140-450 10^3/uL Mean Platelet Volume 9.1 6.9-10.8 fL Neutrophils (%) (Auto) 68.3 37.0-80.0 % Lymphocytes (%) (Auto) 22.5 10.0-50.0 % Monocytes (%) (Auto) 6.5 0.0-12.0 % Eosinophils (%) (Auto) 2.2 0.0-7.0 % Basophils (%) (Auto) 0.5 0.0-2.0 % Neutrophils # (Auto) 4.9 1.6-8.6 10 ^3/uL Lymphocytes # (Auto) 1.6 0.4-5.4 10 ^3/uL Monocytes # (Auto) 0.5 0-1.3 10 ^3/uL Eosinophils # (Auto) 0.2 0-0.8 10 ^3/uL Basophils # (Auto) 0 0-0.2 10 ^3/uL Nucleated Red Blood Cells 0.1 % Lactate Dehydrogenase 298 H 120-246 U/L C-Reactive Protein High Sensitivity 0.93 <1.0 mg/dL Sodium Level 143 136-145 mmol/L Potassium Level 4.1 3.5-5.1 mmol/L Chloride Level 107 98-107 mmol/L Carbon Dioxide Level 25 20-31 mmol/L Anion Gap 11 5-15 Blood Urea Nitrogen 9 9-23 mg/dL Creatinine 0.66 0.550-1.02 mg/dL Glomerular Filtration Rate Calc 100 >90 mL/min BUN/Creatinine Ratio 13.6 10.0-20.0 Serum Glucose 131 H 74-106 mg/dL Calcium Level 9.4 8.7-10.4 mg/dL Urine Color Light-yellow Yellow Urine Clarity Clear Clear Urine pH 6.5 5.0-9.0 Urine Specific [place] 1.008 1.001-1.035 Urine Protein Negative Negative Urine Ketones Negative Negative Urine Blood Negative Negative /uL Urine Nitrite Negative Negative Urine Bilirubin Negative Negative Urine Urobilinogen Normal Negative mg/dL Urine Leukocyte Esterase Negative Negative /uL Urine RBC None seen 0 - 4 /hpf Urine Microscopic WBC 0-5 /HPF Urine Squamous Epithelial Cells Few <5 /hpf Urine Bacteria Few H None Seen /hpf Urine Glucose Normal Normal mg/dL Right knee CT scan reviewed and demonstrated: No acute fracture or dislocation. Osteoarthritis. Hematoma in the anterior prepatellar soft tissues. Avascular necrosis in the posterolateral femoral condyle. 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. Assessment Right knee pain and hematoma Plan/Recommendation I had a very lengthy discussion with the patient and after discussing her case and reviewing her imaging studies with Dr. Yap we have recommended an MRI of her right knee for further evaluation given the CT scan revealed a small lesion to the proximal tibia and the patient having tenderness to palpation along the proximal tibia as well. We will reconvene with the patient once the MRI has been completed to discuss results and determine the course of action. Patient reports that she is extremely claustrophobic and we ordering Ativan to be taken as directed by MRI staff. Patient understood and agreed. Thank you for allowing us to participate in the care of your patient. Plan discussed with: Patient, Spouse JACKSON STEVENSON Jun 03, 2025 13:04
--- NOTE | 2025-06-04 11:19 | DVHPN2 ---
Progress Note - Dictate Date Seen: Jun 03, 2025 Medical Necessity Reason Pt with a Central, PICC or Fol: No Subjective Patient was lying comfortably in bed during my evaluation reports no changes since this afternoon and continues to experience severe pain to her right knee with limited range of motion. Patient reports that she has remained in bed and denies any other complaints or concerns during today's evaluation. vital signs Vital Sign Date Time Temp Pulse Resp B/P (MAP) Pulse Ox O2 Delivery O2 Flow Rate FiO2 06/03/25 12:54 61 15 98/49 (65) 95 06/03/25 12:00 Room Air* 0 21 06/03/25 11:30 97.7 97.7 medications Current Medications Medications Dose Ordered Sig/Gt Route Start Time Stop Time Status Last Admin Dose Admin Polyethylene Glycol 17 gm DAILY PO 06/04/25 10:00 Sennosides 8.6 mg HS PO 06/03/25 22:00 Acetaminophen/ Hydrocodone Bitart 1 tab Q4HP PRN PO 06/03/25 13:00 Ondansetron HCl 4 mg Q4HP PRN IV 06/03/25 13:00 Acetaminophen 650 mg Q6HP PRN PO 06/03/25 13:00 Morphine Sulfate 2 mg Q4HPRN PRN IV 06/03/25 13:00 objective General appearance: A&O x4 in no acute distress HEENT: Normal ENT inspection, pharynx normal, TMs normal Neck: Full range of motion, nontender, normal inspection Respiratory: Chest nontender, without accessory muscle use, no respiratory distress Cardiovascular: No edema, no JVD, normal peripheral pulses Gastrointestinal: Soft, nontender, no organomegaly. Musculoskeletal: Right knee range of motion grossly limited with pain on movement, tenderness to palpation along the proximal tibia, no calf tenderness, normal capillary refill, mild pedal edema, neurovascularly intact. Skin: Dry, normal color, warm Lymphatic: No adenopathy Right knee MRI reviewed and demonstrated: No acute fracture of the right knee. The cruciate and collateral ligaments are intact. Complex tears of the medial meniscus body and posterior horn, with associated extrusion of the body and anterior horn. Intrasubstance signal abnormality of the anterior horn of the lateral meniscus, likely degenerative, without evidence of focal tear of the lateral meniscus. Tricompartmental degenerative changes of the right knee, with tricompartmental marginal osteophytes, full-thickness chondromalacia of the medial compartment, and mild chondromalacia of the lateral patellofemoral articulation. Mild bone marrow edema of the medial tibial plateau may be due to chondromalacia or mild bone bruise. Areas of avascular necrosis including proximal tibial metaphysis and posterior aspect of the lateral femoral condyle. Grade 1 tear of the distal aspect of the right vastus lateralis muscle. This muscle is not fully imaged here, and the grade of tear may be greater more proximal to the scanned areas. 6 cm popliteal fossa cyst. Obesity. Extensive subcutaneous edema and 12 cm anterior subcutaneous hematoma. laboratory and microbiology Laboratory Tests 06/03/25 09:22 06/03/25 07:51 Test 06/03/25 07:51 Range/Units Serum Glucose 131 H 74-106 mg/dL Assessment/Plan Right knee osteoarthritis and hematoma I had a lengthy discussion with the patient and her family and after reviewing her MRI findings with Dr. Yap we have recommended against any surgical intervention at this time and instead advised the patient continue with conservative treatment with pain control and advised the patient to remain partially weight-bearing for the next two weeks and then may gradually begin to weightbear as tolerated with assistance of a walker for four weeks afterwards. I instructed the patient to follow up with our office on an outpatient basis for further evaluation to discuss further treatment options versus surgical interventions. Patient and family understood and agreed. Thank you for allowing us to participate in the care of your patient. Plan discussed with: Patient, Spouse STEVENSONJACKSON GRIGSBY Tasneem TRIPLETT Jun 03, 2025 16:28
--- NOTE | 2025-06-04 14:20 | DVHPN2 ---
Progress Note Date Seen: Jun 04, 2025 Medical Necessity Reason Pt with a Central, PICC or Fol: No Subjective Patient reports: No new complaints Changes from previous H/P or p: No Changes Objective vital signs Vital Sign Date Time Temp Pulse Resp B/P (MAP) Pulse Ox O2 Delivery O2 Flow Rate FiO2 06/04/25 08:36 97.5 71 16 121/70 (87) 93 97.5 06/04/25 08:00 Room Air* 0 21 Total Intake and Output 06/03/25 06/03/25 06/04/25 15:00 23:00 07:00 Intake Total 800 ml Balance 800 ml medications Current Medications Medications Dose Ordered Sig/Gt Route Start Time Stop Time Status Last Admin Dose Admin Polyethylene Glycol 17 gm DAILY PO 06/04/25 10:00 Sennosides 8.6 mg HS PO 06/03/25 22:00 06/03/25 23:31 8.6 MG Acetaminophen/ Hydrocodone Bitart 1 tab Q4HP PRN PO 06/03/25 13:00 Ondansetron HCl 4 mg Q4HP PRN IV 06/03/25 13:00 06/03/25 16:46 4 MG Acetaminophen 650 mg Q6HP PRN PO 06/03/25 13:00 Morphine Sulfate 2 mg Q4HPRN PRN IV 06/03/25 13:00 Examination Generally-59 years old woman, morbidly obese, sitting on bed. No apparent distress HEENT-atraumatic normocephalic heart-regular rate and rhythm Lungs clear to auscultate bilaterally Abdomen soft nontender nondistended Musculoskeletal-right UE range limited due to pain with the movement. Tenderness to palpation paroxysmal anemia. No edema cyanosis. 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 Pressure brain for now and outpatient ortho follow up PT eval for possible home health Pain control Resume home meds Plan discussed with: Patient, Spouse My Orders My Orders Orders - JOSEPH PRADO MD Procedure Category Date Status Time Pt Request For Service PT 06/04/25 Logged 14:16 Date of Service: Jun 04, 2025 Billing Provider: JOSEPH PRADO MD Common Visit Codes: [id number] SAME DATE (HIGH) JOSEPH PRADO MD Jun 04, 2025 14:20
[2025-06-04] MEDS: HEPARIN SODIUM (PORCINE) 5000 UNITS/ML 1ML VIAL SC SCH (22:17)
[2025-06-05 01:00] VITALS: BP 104/54; PULSE 65; RESP 17; TEMP 97.2; O2SAT 97
[2025-06-05 05:00] VITALS: BP 118/64; PULSE 58; RESP 18; TEMP 97.9; O2SAT 97
[2025-06-05 07:24] LABS: Alanine Aminotransferase 30 U/L (7-40); Albumin 4.3 g/dL (3.2-4.8); Alkaline Phosphatase 100 U/L (46-116); Anion Gap 9 (5-15); BUN/Creatinine Ratio 14.9 (10.0-20.0); Blood Urea Nitrogen 10 mg/dL (9-23); Calcium 9.3 mg/dL (8.7-10.4); Carbon Dioxide 29 mmol/L (20-31); Chloride 104 mmol/L (98-107); Glucose 106 mg/dL (74-106); Potassium 3.7 mmol/L (3.5-5.1); Sodium 142 mmol/L (136-145); Total Protein 7.1 g/dL (5.7-8.2)
[2025-06-05 07:25] LABS: Bilirubin, Total 0.4 mg/dL (0.2-1.0)
[2025-06-05 07:32] LABS: Hematocrit 35.1 % (36.0-46.0); Hemoglobin 11.7 g/dL (12.2-16.2); Mean Corpuscular Hemoglobin 29.4 pg (28.0-32.0); Mean Corpuscular Volume 88.3 fL (80.0-100.0); Nucleated Red Blood Cells % 0.1 %
[2025-06-05 09:00] VITALS: BP 138/81; PULSE 78; RESP 16; TEMP 98; O2SAT 95
[2025-06-05] MEDS: HYDROcodone-ACET 5/325MG TAB PO PRN (10:33)
[2025-06-05 13:00] VITALS: BP 135/65; PULSE 76; RESP 16; TEMP 98.3; O2SAT 95
[2025-06-05] MEDS ORDERED: ACE650RS PR (15:50)
[2025-06-05] MEDS ORDERED: IBUP1TAB5 PO (15:50)
[2025-06-05] MEDS ORDERED: HYDR-4902 PO (15:50)
--- NOTE | 2025-06-05 15:52 | DVHDS2 ---
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 Morbid obesity Grade 1 tear of the distal aspect of the right vastus lateralis muscl Complex tears of the medial meniscus body and posterior horn Acute hypoxic respiratory failure on supplemental oxygen Labs/Diagnostic Data: Laboratory Results Test 06/05/25 06:55 06/03/25 09:22 06/03/25 07:15 White Blood Count 7.5 10^3/uL (4.4-10.8) Red Blood Count 3.97 10^6/uL (4.0-5.20) Hemoglobin 11.7 g/dL (12.2-16.2) Hematocrit 35.1 % (36.0-46.0) Mean Corpuscular Volume 88.3 fL (80.0-100.0) Mean Corpuscular Hemoglobin 29.4 pg (28.0-32.0) Mean Corpuscular Hemoglobin Concent 33.3 g/dL (32.0-36.0) Red Cell Distribution Width 14.0 % (11.8-14.3) Platelet Count 223 10^3/uL (140-450) Mean Platelet Volume 8.9 fL (6.9-10.8) Neutrophils (%) (Auto) 61.0 % (37.0-80.0) Lymphocytes (%) (Auto) 24.5 % (10.0-50.0) Monocytes (%) (Auto) 8.7 % (0.0-12.0) Eosinophils (%) (Auto) 5.2 % (0.0-7.0) Basophils (%) (Auto) 0.6 % (0.0-2.0) Neutrophils # (Auto) 4.6 10 ^3/uL (1.6-8.6) Lymphocytes # (Auto) 1.8 10 ^3/uL (0.4-5.4) Monocytes # (Auto) 0.7 10 ^3/uL (0-1.3) Eosinophils # (Auto) 0.4 10 ^3/uL (0-0.8) Basophils # (Auto) 0 10 ^3/uL (0-0.2) Nucleated Red Blood Cells 0.1 % Sodium Level 142 mmol/L (136-145) Potassium Level 3.7 mmol/L (3.5-5.1) Chloride Level 104 mmol/L (98-107) Carbon Dioxide Level 29 mmol/L (20-31) Anion Gap 9 (5-15) Blood Urea Nitrogen 10 mg/dL (9-23) Creatinine 0.67 mg/dL (0.550-1.02) Glomerular Filtration Rate Calc 99 mL/min (>90) BUN/Creatinine Ratio 14.9 (10.0-20.0) Serum Glucose 106 mg/dL (74-106) Calcium Level 9.3 mg/dL (8.7-10.4) Total Bilirubin 0.4 mg/dL (0.2-1.0) Aspartate Amino Transferase (AST) 23 U/L (13-40) Alanine Aminotransferase (ALT) 30 U/L (7-40) Alkaline Phosphatase 100 U/L (46-116) Total Protein 7.1 g/dL (5.7-8.2) Albumin 4.3 g/dL (3.2-4.8) Lactate Dehydrogenase 298 U/L (120-246) C-Reactive Protein High Sensitivity 0.93 mg/dL (<1.0) Urine Color Light-yellow (Yellow) Urine Clarity Clear (Clear) Urine pH 6.5 (5.0-9.0) Urine Specific [place] 1.008 (1.001-1.035) Urine Protein Negative (Negative) Urine Ketones Negative (Negative) Urine Blood Negative /uL (Negative) Urine Nitrite Negative (Negative) Urine Bilirubin Negative (Negative) Urine Urobilinogen Normal mg/dL (Negative) Urine Leukocyte Esterase Negative /uL (Negative) Urine RBC None seen /hpf (0 - 4) Urine Microscopic WBC /HPF (0-5) Urine Squamous Epithelial Cells Few /hpf (<5) Urine Bacteria Few /hpf (None Seen) Urine Glucose Normal mg/dL (Normal) Other Laboratory Tests 06/05/25 06:55 Brief Hx & Hospital Course: Patient is a 1 years old woman presented to the ED with right knee pain. Patient found to have a right knee hematoma, complex tear. Orthopedic surgery recommended no surgical and follow outpatient in two weeks. PTC in the patient. Patient is stable to be discharged home and follow up outpatient in two weeks with the orthopedic surgery Condition at Discharge: Stable Final Diagnosis/Problems List Knee hematoma Right knee complex meniscus tear Discharge Disposition: Home Discharge Instruct/Medications Diet: Regular Activity: See Comment Activity comment: [place] weight-bearing for two weeks then weight-bearing as tolerated. Follow Up/Referral: Follow up with the orthopedic surgeon in 1-2 weeks. Follow up with the PCP in one week Scheduled Gabapentin (Neurontin), 2 CAP PO TID, (Reported) Scheduled PRN Acetaminophen (Tylenol), 650 MG HI Q8H PRN Ibuprofen Micronized (Ibuprofen), 600 MG PO BID PRN Discharge Statement: "Patient was advised to return to the ER or call 911 if any headaches, dizziness, shortness of breath, chest pain, abdominal pain, bleeding, fevers, or worsening of medical condition. Patient was counseled about treatment plan, medications, possible side effects, patientverbalized understanding. All questions were answered to the best of my ability. This discharge took greater then 30 minutes in planning, reviewing documentation, counseling the patient, and discussing with other team members." DME: Diagnosis: Acute on chronic right knee osteoarthritis and hematoma requiring assistance when ambulating. ASSESSMENT ASSESSMENT Assessment Knee hematoma Right knee complex meniscus tear Date of Service: Jun 05, 2025 Billing Provider: JOSEPH PRADO MD Common Visit Codes: 73216-RXV/OBS DISCH DAY >30min JOSEPH PRADO MD Jun 05, 2025 15:52
== END 2025-06-05 17:53 | disposition home or self-care (01) | DRG 604 ==
LOC: ER 05:17 → OVERFLOW 12:47 → EAST 14:38
PROVIDERS: ADMIT Internal Medicine; ATTEND Internal Medicine
DX: S80.01XA Contusion of right knee, initial encounter (principal); J96.01 Acute respiratory failure with hypoxia; M87.9 Osteonecrosis, unspecified; Z68.42 Body mass index [BMI] 45.0-49.9, adult; S83.231A Complex tear of medial meniscus, current injury, right knee, initial encounter; M17.11 Unilateral primary osteoarthritis, right knee; E66.01 Morbid (severe) obesity due to excess calories; W01.0XXA Fall on same level from slipping, tripping and stumbling without subsequent striking against object, initial encounter; G89.29 Other chronic pain; I10 Essential (primary) hypertension; J44.9 Chronic obstructive pulmonary disease, unspecified; F40.240 Claustrophobia; Y93.01 Activity, walking, marching and hiking; Z88.2 Allergy status to sulfonamides; Z90.49 Acquired absence of other specified parts of digestive tract; Z87.891 Personal history of nicotine dependence
CPT/HCPCS: 36415; 73700; 73721; 80048; 80053; 81001; 83615; 85025; 86141; 96361; 96374; 96375; 96376; 97163; G0378; J2405